=== PATIENT | female | born 1950 | race Caucasian/White ===

== ENCOUNTER 2017-03-28 09:39 | Emergency (ER) | payer MEDICAID, MEDICARE ==
[2017-03-28 10:02] VITALS: RESP 18; TEMP 98.2; O2SAT 99; BMI 27.4
--- NOTE | 2017-03-28 10:16 | C.PDOC ---
History Of Present Illness Patient is a 67 year old female who presents to the ER with a complaint of localized, intermittent left shoulder for the past year that has worsened today. Patient notes she has similar symptoms on her right shoulder and states she was previously diagnosed with "arthritis". Patient is a requesting an unknown "shot" that she states her PMD gave her "that made the problem go away" . Patient has not tried any medication for the pain. Denies neck pain or trauma. CO WORSENING L SHOULDER PAIN TODAY. INTERMIT PAIN X 1 YR NOW WORSE THAN BEFORE. LOCALIZED. DENIES NECK PAIN. WORSE W MOVEMENT. NO TRAUMA. SIM SX R SHOULDER, WAS PREV DX "ARTHRITIS". REQUESTING UNK "SHOT", STATES RECEIVED PRIOR SHOT FROM PMD "THAT MADE THE PROBLEM GO AWAY". NO MEDS TRIED. R HANDED EXAM NAD EXT L SHOULDER GEN TEND LIMITED FLEX/EXT DUE TO PAIN. FULL INT/EXT ROTATION. ATRAUM SKIN INTACT NEURO INTACT MDM FAMILY @ BEDSIDE. ADVISED WO KNOWING WHAT MED GIVEN, UNABLE TO GUARANTEE SIM RESULTS PRIOR. ADVISED NEED TO TAKE MAINTENANCE NSAIDS ONCE TORADOL WEARS OFF. FAMILY VOICES UNDERSTANDING, PT SAYING "I WANT THE SHOT THAT MAKES IT GO AWAY". ADVISED NEED TO SEE PMD FOR FURTHER FU Time Seen by Provider: 03/28/17 10:03 Chief Complaint (Nursing): Upper Extremity Problem/Injury History Per: Patient History/Exam Limitations: no limitations Onset/Duration Of Symptoms: Hrs (Worsened today), Intermittent Episodes (For the past year) Current Symptoms Are (Timing): Still Present Exacerbating Factor(s): Movement Recent travel outside of the [facility]: No Past Medical History Reviewed: Historical Data, Nursing Documentation, Vital Signs Vital Signs: Last Vital Signs Temp 98.2 F 03/28/17 09:57 Pulse 88 03/28/17 09:57 Resp 18 03/28/17 09:57 BP 150/79 03/28/17 09:57 Pulse Ox 99 03/28/17 11:04 - Medical History PMH: HTN, Hypercholesterolemia Surgical History: Tonsillectomy Family History: States: Unknown Family Hx - Social History Hx Alcohol Use: No Hx Substance Use: No - Immunization History Hx Tetanus Toxoid Vaccination: No Hx Influenza Vaccination: No Hx Pneumococcal Vaccination: No Review Of Systems Except As Marked, All Systems Reviewed And Found Negative. Musculoskeletal: Positive for: Shoulder Pain (Bilateral, worse on left). Negative for: Neck Pain Physical Exam - Physical Exam Appears: Non-toxic, No Acute Distress Skin: Normal Color, Warm, Dry Head: Atraumatic, Normacephalic Oral Mucosa: Moist Neck: Normal, Normal ROM, No Midline Cervical Tenderness, No Paracervical Tenderness, Supple Extremity: Left: Other (Shoulder, tender, limited flex/ext due to pain. Full int /ext rotation.), Bilateral: Atraumatic (Shoulders) Pulses: Left Brachial: Normal, Right Brachial: Normal Neurological/Psych: Oriented x3, Normal Speech, Normal Cognition ED Course And Treatment O2 Sat by Pulse Oximetry: 99 (Room air) Pulse Ox Interpretation: Normal Progress Note: Toradol and lidoderm administered. Medical Decision Making Medical Decision Making: FAMILY @ BEDSIDE. ADVISED WO KNOWING WHAT MED GIVEN, UNABLE TO GUARANTEE SIM RESULTS PRIOR. ADVISED NEED TO TAKE MAINTENANCE NSAIDS ONCE TORADOL WEARS OFF. FAMILY VOICES UNDERSTANDING, PT SAYING "I WANT THE SHOT THAT MAKES IT GO AWAY". ADVISED NEED TO SEE PMD FOR FURTHER FU Disposition Counseled Patient/Family Regarding: Diagnosis, Need For Followup, Rx Given - Disposition Referrals: Brunilda Liu MD [Primary Care Provider] - Disposition: HOME/ ROUTINE Disposition Time: 10:17 Condition: IMPROVED Additional Instructions: Quitar el parche 12 horas despus de la aplicacin Prescriptions: Ketorolac Tromethamine [Toradol] 10 mg PO Q6 #20 tab Instructions: Rotator Cuff Tendinitis (ED) Print Language: COMORAN - Clinical Impression Clinical Impression: Shoulder pain - Scribe Statement The provider has reviewed the documentation as recorded by the Scribdarion Treadwell All medical record entries made by the Scribe were at my direction and personally dictated by me. I have reviewed the chart and agree that the record accurately reflects my personal performance of the history, physical exam, medical decision making, and the department course for this patient. I have also personally directed, reviewed, and agree with the discharge instructions and disposition.
[2017-03-28] MEDS ORDERED: Lidocaine 5% Patch TD STA (10:19)
[2017-03-28] MEDS ORDERED: Lidocaine 5% Patch TD ONE (10:22)
[2017-03-28 11:20] VITALS: BP 139/79; PULSE 78
== END 2017-03-28 11:10 | disposition home or self-care (01) ==
LOC: C.ER 09:39 → SUPCPDRO 09:39 → C.ER 11:10
DX: M25.512 Pain in left shoulder (principal); I10 Essential (primary) hypertension; E78.00 Pure hypercholesterolemia, unspecified
CPT/HCPCS: 96372; 99284; J1885

== ENCOUNTER 2018-09-21 22:00 | Emergency (ER) | payer MEDICARE, OTHER ==
[2018-09-21 22:00] VITALS: BMI 27.4
[2018-09-21 22:27] VITALS: BP 175/91; PULSE 87; RESP 18; TEMP 97.6; O2SAT 99
--- NOTE | 2018-09-22 00:10 | C.PDOC ---
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 Denies LOC, vomiting, dizziness, weakness, or numbness. Time Seen by Provider: 09/21/18 22:29 Chief Complaint (Nursing): Abnormal Skin Integrity History Per: Patient History/Exam Limitations: no limitations Onset/Duration Of Symptoms: Hrs Current Symptoms Are (Timing): Still Present Location Of Injury: Right: Face Quality Of Symptoms: Painful, Swollen Recent travel outside of the [place]: No Past Medical History Reviewed: Historical Data, Nursing Documentation, Vital Signs Vital Signs: Last Vital Signs Temp 97.6 F 09/21/18 22:23 Pulse 87 09/21/18 22:23 Resp 18 09/21/18 22:23 BP 175/91 H 09/21/18 22:23 Pulse Ox 99 09/21/18 22:23 - Medical History PMH: HTN, Hypercholesterolemia Denies: Depression Surgical History: Tonsillectomy Family History: States: Unknown Family Hx - Social History Hx Alcohol Use: No Hx Substance Use: No - Immunization History Hx Tetanus Toxoid Vaccination: No Hx Influenza Vaccination: No Hx Pneumococcal Vaccination: No Review Of Systems Gastrointestinal: Negative for: Vomiting Musculoskeletal: Positive for: Other (Left facial pain) Neurological: Negative for: Weakness, Dizziness, Other (LOC) Physical Exam - Physical Exam Appears: Non-toxic Skin: Warm, Dry Head: Normacephalic, Other (Tenderness, swelling, and erythema to right maxillary and right mandibular area) Eye(s): bilateral: Normal Inspection, PERRL, EOMI Ear(s): Bilateral: Normal Nose: Normal Oral Mucosa: Moist Neck: Normal, No Midline Cervical Tenderness, No Paracervical Tenderness, Supple Back: No Vertebral Tenderness, No Paraspinal Tenderness Extremity: Normal ROM (x4) Neurological/Psych: Oriented x3, Normal Speech, Normal Motor, Normal Sensation Gait: Steady ED Course And Treatment O2 Sat by Pulse Oximetry: 99 (room air) Pulse Ox Interpretation: Normal - CT Scan/US CT Maxillofacials Other Rad Studies (CT/US): Read By Radiologist, Radiology Report Reviewed CT/US Interpretation: CT scan of the facial bones. Indication: Right facial injury, status post fall. Technique: Axial CT scan images without contrast. Reformatted coronal and sagittal images. Findings: Normal bilateral orbital contents. Normal bilateral medial and inferior orbital powell. Normal bilateral maxillary bones. Normal bilateral maxillary sinuses. Normal bilateral frontozygomatic arches. Normal bilateral zygomatic temporal arches. Normal nasal bones. Normal anterior nasal spine. Anterior right facial soft tissue contusion. Right perimandibular anterior soft tissue contusion. There is no demonstrated fracture. Normal visualized frontal, ethmoidal and sphenoid sinuses. Impression: No CT evidence of acute bone pathology. Anterior, right- sided facial soft tissue contusions. Progress Note: CT maxillofacial ordered. Patient refuses all pain medication at this time. Patient is resting comfortably in the ER in no acute distress, ambulatory with steady gait, vitals are stable, states she feels better and does not wish to wait for CT results, patient understands the risks of signing out AMA and states she will follow up tomorrow for her results. 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 - Scribe Statement The provider has reviewed the documentation as recorded by the Scribdarion Treadwell All medical record entries made by the Kendra were at my direction and personally dictated by me. I have reviewed the chart and agree that the record accurately reflects my personal performance of the history, physical exam, medical decision making, and the department course for this patient. I have also personally directed, reviewed, and agree with the discharge instructions and disposition.
--- NOTE | 2018-09-22 09:27 | CT ---
Date of service: 09/21/2018 PROCEDURE: CT MAXILLOFACIAL BONES WITHOUT CONTRAST HISTORY: Right facial trauma COMPARISON: None available. TECHNIQUE: Contiguous axial CT images of the maxillofacial bones were obtained. Coronal and sagittal reformats were generated. Radiation dose: Total exam DLP = 717.48 mGy-cm. This CT exam was performed using one or more of the following dose reduction techniques: Automated exposure control, adjustment of the mA and/or kV according to patient size, and/or use of iterative reconstruction technique. FINDINGS: NASAL BONES: Unremarkable. ORBITS: Unremarkable.. PARANASAL SINUSES/ MASTOIDS: Clear. MAXILLA: There appears to be mild right sided facial swelling at the level of the angle of the mandible/lower cheek. MANDIBLE/ TEMPOROMANDIBULAR JOINTS: Unremarkable. SKULL BASE: Unremarkable. TEMPORAL BONES: Middle ears and mastoid grossly unremarkable. OTHER FINDINGS: Partially empty sella IMPRESSION: No evidence of acute maxillofacial skeletal fractures. Mild right-sided facial soft tissue swelling..
== END 2018-09-22 00:10 | disposition left against medical advice (07) ==
LOC: C.ER 22:00
DX: S00.83XA Contusion of other part of head, initial encounter (principal); W01.0XXA Fall on same level from slipping, tripping and stumbling without subsequent striking against object, initial encounter; Y92.480 Sidewalk as the place of occurrence of the external cause